=== PATIENT | female | born 1945 | race Caucasian/White ===

== ENCOUNTER 2018-07-27 14:50 | Emergency (ER) | payer MEDICARE ==
[2018-07-27] MEDS ORDERED: Bacitracin Zinc 1 Packet ONE (15:07)
== END 2018-07-27 15:15 | disposition home or self-care (01) ==
LOC: SCSER 14:50
DX: S60.511A Abrasion of right hand, initial encounter (principal); L03.113 Cellulitis of right upper limb; X58.XXXA Exposure to other specified factors, initial encounter
CPT/HCPCS: 99283

== ENCOUNTER 2018-08-02 09:42 | Emergency (ER) | payer MEDICARE ==
[2018-08-02] MEDS ORDERED: Lidocaine 1% w/Epinephrine 1:100K 20 ML VIAL ONE (10:48)
--- NOTE | 2018-08-02 10:54 | RAD ---
FXR Hand Rt 3 View STANDARD: 08/02/2018 10:33 AM CLINICAL INDICATION: Right hand cellulitis concern for foreign body COMPARISON: None. TECHNIQUE: three. Laterality: Right. FINDINGS: Bones: No acute fracture or subluxation demonstrated. 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 Soft Tissue: No radiopaque foreign body. IMPRESSION: No radiopaque foreign body. No acute osseous abnormality. Scattered osteoarthrosis of the right hand. .
[2018-08-02] MEDS ORDERED: Adacel (T-DAP) 0.5 ML SYRINGE ONE (11:17)
[2018-08-02] MEDS ORDERED: Bacitracin Zinc 1 Packet ONE (11:18)
== END 2018-08-02 11:47 | disposition home or self-care (01) ==
LOC: SCSER 09:42
DX: M79.5 Residual foreign body in soft tissue (principal)
CPT/HCPCS: 90471; 90715; J2001